=== PATIENT | male | born 1995 | race Caucasian/White ===

== ENCOUNTER 2023-09-11 12:15 | Emergency (ER) | payer OTHER, SELFPAY ==
[2023-09-11 12:15] VITALS: BP 135/88
[2023-09-11 13:10] LABS: % Basophils 0.5 % (0-2); % Eosinophils 2.2 % (0-6); % Immature Granulocytes 0.2 % (0-0.5); % Lymphocytes 25.5 % (20.5-51.1); % Monocytes 5.4 % (1.7-9.3); % Neutrophils 66.2 % (42.2-75.2); Absolute Eosinophils 0.2 10^3/uL (0-0.7); Absolute Lymphocytes 2.1 10^3/uL (1.2-3.4); Absolute Monocytes 0.5 10^3/uL (0.1-0.6); Absolute Neutrophils 5.5 10^3/uL (1.4-6.5); Hematocrit 40.1 % (39.0-52.0); Hemoglobin 13.7 g/dL (13.0-18.0); Mean Corp Hgb Conc. 34.2 g/dL (33.0-37.0); Mean Corpuscular Hgb 28.3 pg (27.0-31.0); Mean Corpuscular Volume 82.9 fL (80.0-94.0); Nucleated Red Blood Cells % 0 % (-); Platelet Count 261 10^3/uL (130-400); Red Blood Cell Count 4.84 10^6/uL (4.70-6.10); Red Cell Dist. Width 12.5 % (11.5-14.5); White Blood Cell Count 8.3 10^3/uL (4.8-10.8)
[2023-09-11 13:24] LABS: ALT (SGPT) 19 U/L (0-50); AST (SGOT) 25 U/L (17-59); Alkaline Phosphatase 51 U/L (38-126); Blood Urea Nitrogen 15 mg/dl (9-20); Calcium 9.5 mg/dl (8.4-10.2); Carbon Dioxide 25 mmol/L (22-30); Chloride 104 mmol/L (98-107); Glucose 88 mg/dl (70-99); Potassium 3.9 mmol/L (3.5-5.1); Sodium 141 mmol/L (135-145); Total Bilirubin 0.8 mg/dl (0.2-1.3); Total Protein 7.7 g/dl (6.3-8.2); eGFR > 60.00
[2023-09-11 13:35] LABS: Troponin I < 0.012 ng/ml
--- NOTE | 2023-09-11 16:39 | ED.GENMED ---
History of Present Illness
General
Chief Complaint: Chest Pain
Source: patient
Exam Limitations: none
Time Seen by Provider: 09/11/23 15:51
Nursing documentation reviewed up to this point in time: agreed with
Travel History
Have you had any contact with someone who has COVID-19?: No
Do you have any symptoms of coronavirus? Fever > 100 degrees, chills, cough, shortness of breath, sore throat, loss of taste or smell, muscle aches, or headache?: No
History of Present Illness
History of Present Illness:
Patient is a 27-year-old male who presents to the ER complaining of left-sided chest pain/left-sided back pain for the past 1 week. He reports it is intermittent though when he gets symptoms the pain seems to resonate. He had an episode last night
while watching TV where he developed pain to the left chest, nipple area into the left back and radiating to his left arm. This resolved in about a minute but today while driving he had a second episode. He has had the same episodes off and on for
the past week. He complains of some mild intermittent shortness of breath. He denies any injury. He denies any pain with deep breath
He has no documented medical history. He is a smoker. No cardiac history in his family. He does report his father had blood clot in his leg but is not aware of the reason.
PT does drive about 4 hrs total per day to and from work.
Review of Systems
Review of Systems
Allergies reviewed?: Yes
All Other Systems: ROS reviewed and negative except as documented in HPI and ROS
Constitutional: Reports no symptoms; Denies fever, fatigue or chills
EENT: Reports no symptoms
Respiratory: Reports trouble breathing
Cardiac: Reports chest pain; Denies diaphoresis, palpitations or syncope
ABD/GI: Reports no symptoms
: Reports no symptoms
Musculoskeletal: Reports no symptoms
Skin: Reports no symptoms
Neurological: Reports no symptoms
Psychiatric: Reports no symptoms
Phy Exam
General Physical Exam
General Presentation: no apparent distress
General age: appears stated age
General Skin: warm and dry
General Habitus: normal
General Mental: alert
General Hydration: appears well hydrated
Cardiovascular Exam
Cardiovascular Exam: regular rate/rhythm, no murmur and normal peripheral pulses
Pulmonary Exam
Pulmonary Exam: lungs clear and no respiratory distress
Neurological Exam
Neurological Exam: alert and oriented x3
Musculoskeletal Exam
Musculoskeletal Exam: full ROM
Skin Exam
Skin Exam: normal color and warm/dry
Psychiatric Exam
Psychiatric Exam: normal mood/affect
Scores
Heart Score for Chest Pain Patients
STEMI patient?: Not applicable
Course
Orders/Labs/Results
Orders:
Orders
09/11/23 12:18
ECG [Electrocardiogram (*1)] Urgent
Reason for Study: Chest Pain
EKG- Treatment ONCE
09/11/23 12:54
Complete Blood Count/With Diff Urgent
Comprehensive Metabolic Panel Urgent
Troponin I Urgent
09/11/23 15:39
Chest [CR Chest - 2 Views ] Urgent
Comment:
Reason For Exam: cp
09/11/23 17:04
DDimer [D-Dimer] Urgent
09/11/23 12:54
09/11/23 12:54
Vital Signs
Initial and Last Documented VS:
Initial Vital Signs
Temp Pulse Resp BP Pulse Ox
99.1 F 77 18 135/88 100
09/11/23 12:15 09/11/23 12:15 09/11/23 12:15 09/11/23 12:15 09/11/23 12:15
Last Documented Vital Signs
Temp Pulse Resp BP Pulse Ox
99.1 F 77 16 136/96 99
09/11/23 12:15 09/11/23 16:42 09/11/23 16:42 09/11/23 16:42 09/11/23 16:42
MDM/Problems Addressed
MDM/Problems Addressed:
Patient with intermittent chest pain for the past week left chest into left back. Patient is a 27-year-old male he does smoke but no cardiac history and family that he has no past medical history. He is in no acute distress here looks well patient
had a normal cardiac troponin normal chest x-ray no acute findings on EKG and normal D-dimer. D-dimer was done and negative. I spoke with patient that no cause for patient's pain was found during workup but this will need continued evaluation by
PCP. Discussed Motrin Tylenol
*Radiology
Radiology exam reviewed: radiology read reviewed
*Pulse Oximetry
Patient hypoxic: no
*EKG
Interpreted by ED Provider?: Yes
Heart Rate: 55
Rate: bradycardiac
Rhythm: sinus
*Critical Care Note
Total Time (30-74mins, 75-104mins- exclusive of procedures): Not Applicable
ED Attending Note
-
Portions of this chart may have been created with voice recognition software.� Occasional wrong word or��sound alike� substitutions may have occurred due to the inherent limitations of voice recognition software.
Discharge Plan
Departure
Patient Disposition: Home (Routine Discharge)
Date of Disposition: 09/11/23
Time of Disposition: 18:39
Patient with high blood pressure during this ER visit?: Yes
Condition: Fair
Covid-19: Not Applicable
Discharge Problem:
Chest pain
Instructions: Chest Pain PCP Follow Up, BLOOD PRESSURE
Referrals:
UNKNOWN - PT DOES,NOT KNOW [Family Provider] -
Activity Restrictions/Additional Instructions:
Follow-up with family doctor in the next several days for reevaluation of symptoms. You may try ibuprofen or Tylenol. Return if any worsening of symptoms.
Interventions
Interventions:
ED- Fall Risk Assessment Last Done: 09/11/23 16:42
*ED COVID-19 Vaccine History Last Done: 09/11/23 12:18
ED- Cardiac Assessment Last Done: 09/11/23 16:42
Discharge Date and Time
Print Language: NICARAG[place]
[2023-09-11 16:42] VITALS: BP 136/96
[2023-09-11 17:38] LABS: D-Dimer < 0.27 ug/mlFEU (0.00-0.50)
[2023-09-11 18:45] VITALS: BP 132/84
== END 2023-09-11 18:45 | disposition home or self-care (01) ==
LOC: EMR 12:15
PROVIDERS: Emergency Medicine; Nurse Practitioner; EMERGENCY PHYSICIAN Emergency Medicine
DX: R07.89 Other chest pain (principal); R06.02 Shortness of breath; M54.9 Dorsalgia, unspecified; M79.602 Pain in left arm; R42 Dizziness and giddiness; F17.200 Nicotine dependence, unspecified, uncomplicated; R03.0 Elevated blood-pressure reading, without diagnosis of hypertension
CPT/HCPCS: 99283; 71046; 80053; 84484; 85025; 85379; 93005